=== PATIENT | female | born 1980 | race Caucasian/White ===

== ENCOUNTER 2017-06-24 07:58 | Emergency (ER) | payer BC, MEDICAID ==
[~2017-06-24] VITALS: Ht 160 cm; Wt 109.0 kg
[~2017-06-24 07:58] MED LIST: LABE200T2 PO; LISI10TA PO
[2017-06-24 08:05] VITALS: BP 124/93; PULSE 80; RESP 16; TEMP 98.1; O2SAT 98
[2017-06-24] MEDS ORDERED: SODIUM CHLOR 0.9% 1000 ML INJ 1,000 ML IV ONE (08:15)
[2017-06-24] MEDS ORDERED: ONDANSETRON HCL 4 MG/2 ML VIAL IV PUSH ONE (08:15)
[2017-06-24] MEDS ORDERED: SODIUM CHLORIDE 0.9% FLUSH 10 ML FLUSH IVF PRN (08:15)
[2017-06-24] MEDS ORDERED: SERT-132 PO (08:30)
[2017-06-24] MEDS ORDERED: LISI-515 PO (08:30)
--- NOTE | 2017-06-24 08:39 | PD ---
HPI . Myalgias Chief Complaint: GI Complaint Time Seen by Provider: 08:15 Travel History International Travel<30 days: No Contact w/Intl Traveler<30days: No Traveled to known affect area: No History of Present Illness HPI This patient is being seen for the third time in the emergency department in 5 days for myalgias associated with nausea, vomiting, dizziness, headaches, poor appetite and feeling warm and tingly all over. Her emesis occurs about twice a day. No diarrhea. No fever. No modifying factors. PFSH Past Medical History Anxiety: Yes Diminished Hearing: No Hypertension: Yes Reproductive: Yes (PREECLAMPSIA) ?: Not LMP: 05/27/2017 : 3 Para: 2 Tubal Ligation: Yes Past Surgical History Section: Yes (X2) Cholecystectomy: Yes Social History Alcohol Use: No Tobacco Use: No Substance Use: No Allergies-Medications (Allergen,Severity, Reaction): Coded Allergies: No Known Allergies (Verified Adverse Reaction, Unknown, 06/24/17) Reported Meds & Prescriptions Reported Meds & Active Scripts Active Reported Sertraline (Sertraline HCl) 50 Mg Tab 50 Mg PO DAILY Lisinopril 20 Mg Tab 20 Mg PO BID Review of Systems Except as stated in HPI: all other systems reviewed are Neg General / Constitutional: No: Fever, Chills Eyes: No: Blurred Vision HENT: Positive: Headaches, Lightheadedness Gastrointestinal: Positive: Nausea, Vomiting, Loss of Appetite Musculoskeletal: Positive: Myalgias Physical Exam Narrative Vital Signs Date Time Temp Pulse Resp B/P (MAP) Pulse Ox O2 Delivery O2 Flow Rate FiO2 06/24/17 08:05 98.1 80 16 124/93 (103) 98 GENERAL: This is a healthy-appearing woman lying on the stretcher with a pitiful look on her face. She does not look ill. SKIN: warm/dry. Good color and turgor. HEAD: Normocephalic. Atraumatic. EYES: Pupils equal and round. No scleral icterus. No injection or drainage. ENT: No nasal bleeding or discharge. Mucous membranes pink and moist. NECK: Trachea midline. Full range of motion without pain.. CARDIOVASCULAR: Regular rate and rhythm. Heart sounds are normal. RESPIRATORY: No accessory muscle use. Clear to auscultation. Breath sounds equal bilaterally. GASTROINTESTINAL: Abdomen soft. Nontender. Bowel sounds present. Nondistended. MUSCULOSKELETAL: No obvious deformities. NEUROLOGICAL: Awake and alert. No obvious cranial nerve deficits. Motor grossly within normal limits. Normal speech. PSYCHIATRIC: Appropriate mood and affect; insight and judgment normal. Data Data Last Documented VS Vital Signs Date Time Temp Pulse Resp B/P (MAP) Pulse Ox O2 Delivery O2 Flow Rate FiO2 06/24/17 08:05 98.1 80 16 124/93 (103) 98 Orders Orders Complete Blood Count With Diff (06/24/17 08:15) Basic Metabolic Panel (Bmp) (06/24/17 08:15) Urinalysis - C+S If Indicated (06/24/17 08:15) Iv Access Insert/Monitor (06/24/17 08:15) Ondansetron Inj (Zofran Inj) (06/24/17 08:15) Sodium Chlor 0.9% 1000 Ml Inj (Ns 1000 M (06/24/17 08:15) Sodium Chloride 0.9% Flush (Ns Flush) (06/24/17 08:15) Enteric Path (Stool) (06/24/17 08:15) Ed Urine Pregnancytest Poc (06/24/17 08:39) Labs Laboratory Tests Test 06/24/17 08:20 2 08:50 Urine Collection Type CLEAN CATCH Urine Color YELLOW Urine Turbidity HAZY Urine pH 5.5 Urine Specific [place] 1.026 Urine Protein NEG mg/dL Urine Glucose (UA) NEG mg/dL Urine Ketones 15 mg/dL Urine Occult Blood TRACE Urine Nitrite NEG Urine Bilirubin NEG Urine Leukocyte Esterase NEG Urine RBC 0-3 /hpf Urine Squamous Epithelial Cells 6-8 /hpf Urine Amorphous Sediment MOD Microscopic Urinalysis Comment CULT NOT INDICATED Urine Collection Time 0820 White Blood Count 11.2 TH/MM3 Red Blood Count 5.56 MIL/MM3 Hemoglobin 14.4 GM/DL Hematocrit 42.9 % Mean Corpuscular Volume 77.1 FL Mean Corpuscular Hemoglobin 25.8 PG Mean Corpuscular Hemoglobin Concent 33.5 % Red Cell Distribution Width 14.6 % Platelet Count 343 TH/MM3 Mean Platelet Volume 8.6 FL Neutrophils (%) (Auto) 73.8 % Lymphocytes (%) (Auto) 19.2 % Monocytes (%) (Auto) 4.5 % Eosinophils (%) (Auto) 0.2 % Basophils (%) (Auto) 2.3 % Neutrophils # (Auto) 8.3 TH/MM3 Lymphocytes # (Auto) 2.1 TH/MM3 Monocytes # (Auto) 0.5 TH/MM3 Eosinophils # (Auto) 0.0 TH/MM3 Basophils # (Auto) 0.3 TH/MM3 CBC Comment DIFF FINAL Differential Comment Blood Urea Nitrogen 8 MG/DL Creatinine 0.83 MG/DL Random Glucose 111 MG/DL Calcium Level 8.6 MG/DL Sodium Level 135 MEQ/L Potassium Level 3.7 MEQ/L Chloride Level 104 MEQ/L Carbon Dioxide Level 20.6 MEQ/L Anion Gap 10 MEQ/L Estimat Glomerular Filtration Rate 79 ML/MIN MDM Medical Decision Making Medical Screen Exam Complete: Yes Emergency Medical Condition: Yes Medical Record Reviewed: Yes Differential Diagnosis Differential diagnosis includes but is not limited to viral gastritis, food poisoning, pancreatitis, pneumonia, hepatitis, acute coronary syndrome, Narrative Course This patient presents with multiple complaints including myalgias, minimal nausea and vomiting, dizziness, headache, poor appetite and feeling warm and tingly all over. This is her third visit to an emergency department in 5 days for this. She looks well. I suspect that she does not have a significant etiology for her symptoms. I have requested old records from [facility]. I have ordered basic labs here including a CBC, basic metabolic panel and urinalysis. In the meantime, she will be treated with IV fluids and IV Zofran. CBC & BMP Diagram 06/24/17 08:50 Calcium Level 8.6 UA>>neg 9:30 AM I am still awaiting records from [facility]. Old records have been received from [facility]. The patient presented there on complaining that she felt that there was something stuck in her throat. It was not preventing her from eating and drinking. Onset of symptoms was 3 days. She was evaluated there with a CT soft tissues of her neck which showed hypertrophy of her adenoidal and tonsillar tissue. She was discharged with a prescription for amoxicillin. She presented back to then 2 days later on 06/22 with a different complaint. That day, she complained with chest pain. She had a full workup and no etiology for her chest pain was found. Specifically, her chest x-ray and EKG were negative as was her troponin. I have not found an etiology for her symptoms. The history, exam, diagnostic testing, and current condition do not suggest any significant pathology to warrant further testing, continued ED treatment, admission, or surgical evaluation at this point. No EMC was found. The patient 's condition is stable and appropriate for discharge. I will strongly recommend that she see her primary care doctor rather than frequenting emergency departments. Diagnosis Primary Impression: Dizziness Referrals: [facility] Patient Instructions: Dizziness (ED), General Instructions Additional Instructions: See your primary care doctor rather than the emergency department for ongoing evaluation if your symptoms continue Disposition: 01 DISCHARGE HOME Condition: Stable Dinorah Morton MD Jun 24, 2017 08:39
[2017-06-24 08:54] LABS: BLOOD, URINE TRACE (NEG); GLUCOSE,URINE NEG (NEG); KETONE, URINE 15 mg/dL (NEG); NITRITE,URINE NEG (NEG); PH, URINE 5.5 (5.0-8.5); URINE LEUKOCYTE ESTERASE NEG (NEG)
[2017-06-24 09:05] LABS: BILIRUBIN, URINE NEG (NEG)
[2017-06-24 09:06] LABS: CALCIUM 8.6 MG/DL (8.5-10.1)
[2017-06-24 09:07] LABS: URINE COLOR YELLOW (YELLW/STRAW)
[2017-06-24 09:07] LABS: BICARBONATE 20.6 MEQ/L (21.0-32.0)
[2017-06-24 09:08] LABS: RBC, URINE 0-3 /hpf (0-3)
[2017-06-24 09:09] LABS: AMORPHOUS SEDIMENT, URINE MOD
[2017-06-24 09:10] LABS: CREATININE 0.83 MG/DL (0.50-1.00)
[2017-06-24 09:18] LABS: AUTOMATED NEUTROPHIL # 8.3 TH/MM3 (1.8-7.7); BASOPHIL # 0.3 TH/MM3 (0-0.2); BASOPHIL % 2.3 % (0.0-2.0); EOSINOPHIL % 0.2 % (0.0-4.0); HEMATOCRIT 42.9 % (35.0-46.0); HEMOGLOBIN 14.4 GM/DL (11.6-15.3); LYMPH % 19.2 % (9.0-44.0); LYMPHOCYTE # 2.1 TH/MM3 (1.0-4.8); MEAN CELL VOLUME 77.1 FL (80.0-100.0); MEAN CORPUSCULAR HEMOGLOBIN 25.8 PG (27.0-34.0); MEAN CORPUSCULAR HGB CONC 33.5 % (32.0-36.0); MEAN PLATELET VOLUME 8.6 FL (7.0-11.0); MONO % 4.5 % (0.0-8.0); MONOCYTE # 0.5 TH/MM3 (0-0.9); NEUT % 73.8 % (16.0-70.0); PLATELET COUNT 343 TH/MM3 (150-450); RED BLOOD COUNT 5.56 MIL/MM3 (4.00-5.30); RED CELL DISTRIBUTION WIDTH 14.6 % (11.6-17.2); WHITE BLOOD COUNT 11.2 TH/MM3 (4.0-11.0)
[2017-06-24 10:21] VITALS: BP 145/71
== END 2017-06-24 10:33 | disposition home or self-care (01) ==
LOC: PHED 07:58
DX: R42 Dizziness and giddiness (principal); M79.1 Myalgia; R11.2 Nausea with vomiting, unspecified; R51 Headache; R63.0 Anorexia; R20.2 Paresthesia of skin; I10 Essential (primary) hypertension; F41.9 Anxiety disorder, unspecified
CPT/HCPCS: 80048; 81001; 84703; 85025; 96374; 99284; J2405; J7030

== ENCOUNTER 2017-10-28 18:18 | Emergency (ER) | payer SELFPAY ==
[~2017-10-28] VITALS: Ht 160 cm; Wt 105.0 kg
[~2017-10-28 18:18] MED LIST changes: -LABE200T2 PO; +LISI-515 PO; -LISI10TA PO; +SERT-132 PO
[2017-10-28 18:30] VITALS: BP 139/99; PULSE 109; RESP 20; TEMP 98.3; O2SAT 97
--- NOTE | 2017-10-28 21:44 | PD ---
HPI Chief Complaint: Cold / Flu Symptoms Time Seen by Provider: 21:42 Travel History International Travel<30 days: No Contact w/Intl Traveler<30days: No Traveled to known affect area: No History of Present Illness HPI This is a 38-year-old female who presents with several complaints. For the past several days she has had a dry mouth, the sensation that there is something stuck in her throat, anxiety, tremors, and concern for dehydration, nausea. Symptoms are moderate with no obvious aggravating or relieving factors. She denies sore throat, cough, congestion, fevers, chills, abdominal pain, vomiting, diarrhea, constipation, flank pain. Her reports that she has been having panic attacks. She has no other complaints at this time. FORMERLY [facility], [facility] Past Medical History Anxiety: Yes Diminished Hearing: No Hypertension: Yes Reproductive: Yes (PREECLAMPSIA) ?: Not : 3 Para: 2 Tubal Ligation: Yes Past Surgical History Section: Yes (X2) Cholecystectomy: Yes Social History Alcohol Use: No Tobacco Use: Yes (3/4 ppd) Substance Use: No Allergies-Medications (Allergen,Severity, Reaction): Coded Allergies: No Known Allergies (Verified Adverse Reaction, Unknown, 06/24/17) Reported Meds & Prescriptions Reported Meds & Active Scripts Active Zofran (Ondansetron HCl) 4 Mg Tab 4 Mg PO Q6HR PRN Reported Sertraline (Sertraline HCl) 50 Mg Tab 50 Mg PO DAILY Lisinopril 20 Mg Tab 20 Mg PO BID Review of Systems Except as stated in HPI: all other systems reviewed are Neg Physical Exam Narrative GENERAL: Well-developed well-nourished female in no acute distress. She appears anxious. Initially tachycardic, heart rate normalized upon reexamination. SKIN: Warm and dry. HEAD: Atraumatic. Normocephalic. EYES: Pupils equal and round. No scleral icterus. No injection or drainage. ENT: No nasal bleeding or discharge. Mucous membranes pink and moist. NECK: Trachea midline. No JVD. CARDIOVASCULAR: Regular rate and rhythm. No murmur appreciated. RESPIRATORY: No accessory muscle use. Clear to auscultation. Breath sounds equal bilaterally. GASTROINTESTINAL: Abdomen soft, non-tender, nondistended. Hepatic and splenic margins not palpable. MUSCULOSKELETAL: No obvious deformities. No clubbing. No cyanosis. No edema. NEUROLOGICAL: Awake and alert. No obvious cranial nerve deficits. Motor grossly within normal limits. Normal speech. Data Data Last Documented VS Vital Signs Date Time Temp Pulse Resp B/P (MAP) Pulse Ox O2 Delivery O2 Flow Rate FiO2 10/28/17 18:30 98.3 109 20 139/99 (112) 97 Orders Orders Oral Rehydration (10/28/17 21:42) Basic Metabolic Panel (Bmp) (10/28/17 21:42) Complete Blood Count With Diff (10/28/17 21:42) Al-Mag Hy-Si 40-40-4 Mg/Ml Liq (Mag-Al P (10/28/17 21:45) Lidocaine 2% Viscous (Xylocaine 2% Visco (10/28/17 21:45) Ed Urine Pregnancytest Poc (10/28/17 21:42) Magnesium (Mg) (10/28/17 21:42) Ondansetron Odt (Zofran Odt) (10/28/17 21:45) Soft Tissue Neck (10/28/17 ) Ed Discharge Order (10/28/17 23:22) Labs Laboratory Tests Test 10/28/17 22:40 White Blood Count 11.3 TH/MM3 Red Blood Count 5.39 MIL/MM3 Hemoglobin 13.5 GM/DL Hematocrit 41.1 % Mean Corpuscular Volume 76.2 FL Mean Corpuscular Hemoglobin 25.0 PG Mean Corpuscular Hemoglobin Concent 32.8 % Red Cell Distribution Width 15.8 % Platelet Count 313 TH/MM3 Mean Platelet Volume 8.0 FL Neutrophils (%) (Auto) 58.0 % Lymphocytes (%) (Auto) 33.3 % Monocytes (%) (Auto) 7.0 % Eosinophils (%) (Auto) 1.1 % Basophils (%) (Auto) 0.6 % Neutrophils # (Auto) 6.6 TH/MM3 Lymphocytes # (Auto) 3.8 TH/MM3 Monocytes # (Auto) 0.8 TH/MM3 Eosinophils # (Auto) 0.1 TH/MM3 Basophils # (Auto) 0.1 TH/MM3 CBC Comment DIFF FINAL Differential Comment Blood Urea Nitrogen 8 MG/DL Creatinine 0.83 MG/DL Random Glucose 75 MG/DL Calcium Level 8.9 MG/DL Magnesium Level 2.0 MG/DL Sodium Level 140 MEQ/L Potassium Level 3.9 MEQ/L Chloride Level 107 MEQ/L Carbon Dioxide Level 23.8 MEQ/L Anion Gap 9 MEQ/L Estimat Glomerular Filtration Rate 78 ML/MIN MDM Medical Decision Making Medical Screen Exam Complete: Yes Emergency Medical Condition: Yes Medical Record Reviewed: Yes Differential Diagnosis Anxiety, , electrolyte abnormality, esophageal foreign body, retropharyngeal abscess, hyperthyroidism Narrative Course Physical examination is benign. I suspect anxiety is a primary component in her symptoms. We will check basic lab work, soft tissue x-ray of the neck. She will be given GI cocktail, oral hydration, Zofran, Vistaril. Lab work is unremarkable. Soft tissue x-ray neck is unremarkable. Urine test negative. Upon reexamination she actually feels quite improved after the administration of the above medications. She will be discharged with a prescription for Zofran. She may benefit from cognitive behavioral therapy, discussed this with her and she agrees. Diagnosis Primary Impression: Anxiety Additional Instructions: Medication as needed for nausea. Follow-up close with primary care physician. Return for any emergent medical conditions. Med/Other Pt SpecificInfo: Prescription(s) given Scripts Ondansetron (Zofran) 4 Mg Tab 4 MG PO Q6HR Y for NAUSEA OR VOMITING, #20 TAB 0 Refills Prov: Juanjose Boyer MD 10/28/17 Disposition: 01 DISCHARGE HOME Condition: Stable Ramakrishna Armstrong Oct 28, 2017 21:44
[2017-10-28] MEDS ORDERED: LIDOCAINE VISCOUS 2% SOLN 15 ML UDC PO ONE (21:45)
[2017-10-28] MEDS ORDERED: ONDANSETRON ODT 4 MG TAB PO ONE (21:45)
[2017-10-28] MEDS ORDERED: ALUMINUM/MAGNESIUM/SIMETH 30 ML CUP PO ONE (21:45)
--- NOTE | 2017-10-28 22:17 | RADRPT ---
EXAM DATE: 10/28/2017 10:15 PM EDT AGE/SEX: 37 years / Female INDICATIONS: Throat discomfort. CLINICAL DATA: This is the patient's initial encounter. Patient reports that signs and symptoms have been present for 2 days and indicates a pain score of 0/10. MEDICAL/SURGICAL HISTORY: None. None. COMPARISON: No prior exams available for comparison. FINDINGS: Two-view examination of the soft tissues of the neck demonstrates the hypopharyngeal airway to have a grossly normal configuration. The trachea is midline. No radiopaque foreign bodies are seen. CONCLUSION: Negative exam. Electronically signed by: Dagoberto Santiago MD 10/28/2017 10:16 PM EDT
[2017-10-28 22:58] LABS: AUTOMATED NEUTROPHIL # 6.6 TH/MM3 (1.8-7.7); BASOPHIL # 0.1 TH/MM3 (0-0.2); BASOPHIL % 0.6 % (0.0-2.0); EOSINOPHIL # 0.1 TH/MM3 (0-0.4); EOSINOPHIL % 1.1 % (0.0-4.0); HEMATOCRIT 41.1 % (35.0-46.0); HEMOGLOBIN 13.5 GM/DL (11.6-15.3); LYMPH % 33.3 % (9.0-44.0); LYMPHOCYTE # 3.8 TH/MM3 (1.0-4.8); MEAN CELL VOLUME 76.2 FL (80.0-100.0); MEAN CORPUSCULAR HGB CONC 32.8 % (32.0-36.0); MONOCYTE # 0.8 TH/MM3 (0-0.9); PLATELET COUNT 313 TH/MM3 (150-450); RED BLOOD COUNT 5.39 MIL/MM3 (4.00-5.30); RED CELL DISTRIBUTION WIDTH 15.8 % (11.6-17.2); WHITE BLOOD COUNT 11.3 TH/MM3 (4.0-11.0)
[2017-10-28 23:14] LABS: BICARBONATE 23.8 MEQ/L (21.0-32.0); CALCIUM 8.9 MG/DL (8.5-10.1); CREATININE 0.83 MG/DL (0.50-1.00)
[2017-10-28] MEDS ORDERED: ZOFR4TAB PO (23:23)
== END 2017-10-28 23:40 | disposition home or self-care (01) ==
LOC: NEPK 18:18 → NEPD 23:40
DX: F41.9 Anxiety disorder, unspecified (principal); R68.2 Dry mouth, unspecified; R25.1 Tremor, unspecified; R09.89 Other specified symptoms and signs involving the circulatory and respiratory systems; I10 Essential (primary) hypertension; F17.200 Nicotine dependence, unspecified, uncomplicated
CPT/HCPCS: 70360; 80048; 83735; 84703; 85025; 99284